=== PATIENT | female | born 1955 | race Caucasian/White ===

== ENCOUNTER 2022-12-31 12:17 | Emergency (ER) | payer OTHER, SELFPAY ==
[2022-12-31 12:24] VITALS: BP 168/107; PULSE 76; RESP 18; TEMP 36.9; O2SAT 98; BMI 23.3
--- NOTE | 2022-12-31 12:37 | XRR_ITS ---
PROCEDURE INFORMATION: Exam: XR Chest Exam date and time: 12/31/2022 12:53 PM Age: 67 years old Clinical indication: Injury or trauma; Fall; Blunt trauma (contusions or hematomas); Additional info: Fall chest wall pain TECHNIQUE: Imaging protocol: Radiologic exam of the chest. Views: 1 view. COMPARISON: No relevant prior studies available. FINDINGS: Lungs: Unremarkable. No consolidation. Pleural spaces: Unremarkable. No pleural effusion. No pneumothorax. Heart/Mediastinum: Unremarkable. No cardiomegaly. Bones/joints: Partially visualized intramedullary bertin through the proximal right femur. 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 XR/XR chest 1V portable [id number] IMPRESSION: No acute findings.Non acute findings as described above.
--- NOTE | 2022-12-31 12:37 | XRR_ITS ---
PROCEDURE INFORMATION: Exam: XR Left Knee Exam date and time: 12/31/2022 12:48 PM Age: 67 years old Clinical indication: Injury or trauma; Fall; Blunt trauma; Knee; Left; Additional info: Fall knee trauma TECHNIQUE: Imaging protocol: Radiologic exam of the left knee. Views: 1 or 2 views. COMPARISON: No relevant prior studies available. FINDINGS: Bones/joints: There is a nondisplaced oblique fracture through the patella. Soft tissues: Edema and/or hematoma is present in the soft tissues adjacent to the fracture site. XR/XR knee LT 1-2V [id number] IMPRESSION: Nondisplaced oblique patellar fracture.
--- NOTE | 2022-12-31 12:37 | CTR_ITS ---
PROCEDURE INFORMATION: Exam: CT Head Without Contrast Exam date and time: 12/31/2022 12:43 PM Age: 67 years old Clinical indication: Injury or trauma; Fall; Blunt trauma (contusions or hematomas) and laceration; Without residual foreign body; Eye; Right; Additional info: Fall, head trauma TECHNIQUE: Imaging protocol: Computed tomography of the head without contrast. Radiation optimization: All CT scans at this facility use at least one of these dose optimization techniques: automated exposure control; mA and/or kV adjustment per patient size (includes targeted exams where dose is matched to clinical indication); or iterative reconstruction. REPORTING DATA: Count of CT and Cardiac NM exams in prior 12 months: This patient has received 0 known CTs and 0 known cardiac nuclear medicine studies in the 12 months prior to the current study. COMPARISON: No relevant prior studies available. RADIATION DOSE METRICS: Total DLP (mGy-cm): 1014.98 FINDINGS: Brain: Normal. No hemorrhage. Unremarkable white matter. No mass effect. Cerebral ventricles: No ventriculomegaly. Paranasal sinuses: Visualized sinuses are unremarkable. No fluid levels. Mastoid air cells: Visualized mastoid air cells are well aerated. Bones/joints: Unremarkable. No acute fracture. Soft tissues: Minimal right periorbital soft tissue edema and/or hematoma. CT/CT head wo con* [id number] IMPRESSION: Minimal right periorbital soft tissue edema and/or hematoma.
--- NOTE | 2022-12-31 13:29 | ED_ITS ---
HPI - Fall General: Chief Complaint: Fall Stated Complaint: fall, eye lac Time Seen by Provider: 12/31/22 12:19 History of Present Illness: This is a 67-year-old female that presents to the emergency department after she missed stepped falling striking her face on a countertop. She says she struck the countertop with her right brow and then fell into a piece of furniture with her left chest and knee Denies loss of consciousness. She was able to ambulate Patient states that she had the wind knocked out of her from striking her chest wall on the back of a piece of furniture. She denies any shortness of breath Patient denies anticoagulation use. She has a small, less than 1 cm laceration over the right brow No active bleeding Complaining of left anterior knee pain Associated symptoms-after fall: Denies abdominal pain, chest pain, confusion, difficulty walking, headache(s), hematuria or neck pain Review of Systems General: Reports: 10 or more systems reviewed and unremarkable except in HPI and below Const: Denies: fever(s), chills, change in appetite, change in weight, fatigue or malaise Eyes: Denies: change in vision, eye discomfort, eye discharge or eye redness ENMT: Denies: throat pain, enlarged tonsils, odynophagia, hoarseness, ear or mastoid pain, ear discharge, change in hearing, tinnitus, nasal discharge, nasal congestion, post nasal drip or sinus pain Card: Denies: chest pain, palpitations, irregular heart rhythm, edema, dyspnea on exertion, orthopnea or leg pain with exertion Resp: Denies: dyspnea, productive cough, non-productive cough, wheezing, stridor or chest congestion GI: Denies: abdominal pain, nausea, vomiting, dysphagia, diarrhea, constipation, bloating, GI cramping or hematochezia : Denies: flank pain, difficulty voiding, dysuria, urinary frequency, urinary urgency, urinary hesitancy, oliguria or hematuria Musc: Reports: extremity pain and joint pain; Denies: neck pain, back pain, joint swelling, joint redness, joint warmth or muscle weakness Skin/Breast: Denies: rash, pruritus, erythema, photosensitivity or new lesions Neuro: Denies: headache(s), numbness in extremities, weakness in extremities, sensory changes, lack of coordination, difficulty walking, frequent falls, dizziness, confusion, Slurred speech present, difficulty communicating thoughts, seizure-like activity or involuntary movements Endo: Denies: polyuria, polydipsia or tired all the time Jb/Lymph: Denies: easy bruising or easy bleeding Physical Exam Const: COMMON NORMALS: no acute distress, patient oriented x3 and alert GENERAL APPEARANCE: cooperative ORIENTATION/CONSCIOUSNESS: Yes awake, Yes oriented to person, Yes oriented to place and Yes oriented to time HENMT: COMMON NORMALS: normocephalic and atraumatic HEAD & SCALP: normocephalic and atraumatic FACE & SINUS: normal facial exam MOUTH: Normal oral and palatal mucosa present THROAT: posterior oropharynx normal Eye: COMMON NORMALS: Equal, round and reactive pupils present, EOMs intact bilaterally, conjunctivae normal and no scleral icterus GENERAL EYE: appearance normal, both eyes and all related structures ALIGNMENT: Yes alignment normal PERIORBITAL: periorbital findings normal CONJUNCTIVA: Yes conjunctivae normal PUPIL: Yes Equal, round and reactive pupils present Neck/C-Spine: COMMON NORMALS: full ROM GENERAL: Yes normal visual inspection Lymph: LYMPHATIC: no lymphadenopathy noted Chest: COMMONS NORMALS: normal inspection of the chest Breast/axilla inspection: Yes no chest deformity, asymmetry, normal contours, no nodules, masses, tenderness OTHER: Tenderness to palpation over left lateral chest wall Resp: COMMON NORMALS: normal respiratory effort, No retractions, No use of accessory muscles and clear to auscultation bilaterally EFFORT & INSPECTION: Yes able to speak in complete sentences and Yes symmetric chest movement AUSCULTATION: clear to auscultation bilaterally Cardio: COMMON NORMALS: regular rate, regular rhythm and Peripheral pulses 2+ throughout RATE: regular rate RHYTHM: regular rhythm PERIPHERAL PULSES: Peripheral pulses 2+ throughout GI: COMMON NORMALS: Normal to inspection, nondistended, normoactive bowel sounds present, Soft to palpation, non-tender and No hepatosplenomegaly present INSPECTION: Yes normal to inspection AUSCULTATION: Yes normoactive bowel sounds PALPATION: Yes Soft to palpation and Yes No hepatosplenomegaly present RECTAL EXAM: deferred Extremity: COMMON NORMALS: normal to inspection NARRATIVE EXTREMITY EXAM: Left lower extremity: Skin is clean dry and intact Anterior knee pain to palpation Patient is able to flex and extend the knee without difficulty She is able to dorsiflex plantarflex the foot Able to dorsiflex great toe Sensation intact light touch at medial, lateral, dorsal, plantar surface of the foot and first webspace DP pulses palpable and cap refills less than 3 seconds GENERAL: Yes normal exam except as noted Neuro: COMMON NORMALS: patient oriented x3 SENSORIUM/ORIENTATION: Yes alert, Yes oriented to person, Yes oriented to place and Yes oriented to time CRANIAL NERVES: Yes CN normal except as noted Psych: COMMON NORMALS: mental status grossly normal, Normal thought process present, cooperative, activity/motor behavior normal, denies homicidal ideation and denies suicidal ideation THOUGHT PROCESS: Normal thought process present Skin: COMMON NORMALS: no rashes or lesions noted, no wounds and turgor normal GENERAL SKIN EXAM: no rashes or lesions noted and turgor normal Course Vital Signs: Vital signs: Vital Signs Temperature 98.4 F 12/31/22 12:24 Pulse Rate 76 12/31/22 12:24 Respiratory Rate 18 12/31/22 12:24 Blood Pressure 168/107 12/31/22 12:24 Pulse Oximetry 98 12/31/22 12:24 Oxygen Delivery Me thod Room Air 12/31/22 12:24 MDM - Fall Medical Decision Making Patient was evaluated in the emergency department after a fall from standing position. She underwent CT head, XR chest and XR of the left knee. Findings revealed no acute injuries intracranially. There is edema noted over the right brow on CT Patient underwent XR chest and left knee which revealed no acute chest injury i.e. hemo-, pneumothorax, rib fractures, pulmonary contusions. Patient's XR knee reveals a nondisplaced patellar fracture. Patient was placed in a knee immobilizer and ambulated with crutches. Her laceration over the right brow was closed with Dermabond. Patient is from [place]. She is going to need to follow-up with her PCP and orthopedic surgeon of choice in [place] when she returns home. Lab Data Radiology Impressions Chest X-Ray 12/31/22 12:37 IMPRESSION: No acute findings.Non acute findings as described above. Head CT 12/31/22 12:37 IMPRESSION: Minimal right periorbital soft tissue edema and/or hematoma. Knee X-Ray 12/31/22 12:37 IMPRESSION: Nondisplaced oblique patellar fracture. All radiology interpretation(s) finalized by discharge Discharge Plan Discharge Patient Disposition: Home Clinical Impression: Left patella fracture, CHI (closed head injury), Laceration, Chest wall contusion Condition: Stable Prescriptions: No Action Unable to Assess Discharge Orders: Discharge ED (Routine); Ordered 12/31/22 Ordered By: Yeyo Diaz Discharge Diet: Advance as tolerated Discharge Activity: Resume usual activity Patient Instructions: Contusion in Adults (ED), Patellar Fracture (ED), Skin Adhesive Care (ED), Head Laceration (ED), Pain Management Activity Restrictions/Additional Instructions: You may bear weight on the left leg. Use the knee immobilizer at all times with the exclusion of showering Keep the knee straight during that time though Follow-up with orthopedics or primary care when she returns home to [place]. Coding Level of Care Code ED A P Mechanic for Qamar Agrawal
[2022-12-31] MEDS: tetanus-dipt-pertussis 0.5 mL SDV IM (14:08)
--- NOTE | 2023-01-01 11:30 | PC.SOCIAL ---
Ortho Referral Referral to clinic at this time. Clinic to contact patient with appt date/time.
== END 2022-12-31 15:13 | disposition home or self-care (01) ==
PROVIDERS: Emergency Provider Nurse Practitioner
DX: S82.092A Other fracture of left patella, initial encounter for closed fracture (principal); S09.8XXA Other specified injuries of head, initial encounter; S20.212A Contusion of left front wall of thorax, initial encounter; S01.111A Laceration without foreign body of right eyelid and periocular area, initial encounter; W01.198A Fall on same level from slipping, tripping and stumbling with subsequent striking against other object, initial encounter; Z23 Encounter for immunization
CPT/HCPCS: 12011; 29530; 70450; 71045; 73560; 90471; 90715; 99283; E0114